=== PATIENT | male | born 1950 | race Caucasian/White ===

== ENCOUNTER 2021-03-18 12:34 | Inpatient (IN) | payer MEDICARE ==
[~2021-03-18] VITALS: Ht 193 cm; Wt 63.5 kg
[2021-03-18 17:39] LABS: HEMOGLOBIN 12.6 gm/dl (14.0-17.5); RED BLOOD COUNT 4.25 M/UL (4.20-5.50); WHITE BLOOD COUNT 6.3 K/UL (4.5-11.0)
[2021-03-18] MEDS ORDERED: PROAIR HFA8.5 GM INH (17:40)
[2021-03-18] MEDS ORDERED: GABAPENTIN800 MG PO (17:40)
[2021-03-18] MEDS ORDERED: ZOLOFT100 MG PO (17:40)
[2021-03-18] MEDS ORDERED: IBUPROFEN800 MG PO (17:42)
[2021-03-18] MEDS ORDERED: CYCLOBENZAPRINE10 MG PO (17:43)
[2021-03-18] MEDS ORDERED: LISINOPRIL10 MG PO (17:43)
[2021-03-18] MEDS ORDERED: OMEPRAZOLE20 M1 PO (17:45)
[2021-03-18] MEDS ORDERED: ACETAMINOPHEN500 MG PO (17:45)
[2021-03-18] MEDS ORDERED: FAMOTIDINE20 MG PO (17:45)
[2021-03-18 18:13] LABS: BUN/CREATININE RATIO 33 (0-10)
[2021-03-19 06:30] LABS: HEMOGLOBIN 12.3 gm/dl (14.0-17.5); RED BLOOD COUNT 4.13 M/UL (4.20-5.50)
[2021-03-19 07:03] LABS: BUN/CREATININE RATIO 29 (0-10)
[2021-03-20 05:40] LABS: HEMOGLOBIN 13.7 gm/dl (14.0-17.5); WHITE BLOOD COUNT 6.1 K/UL (4.5-11.0)
[2021-03-20 06:00] LABS: BUN/CREATININE RATIO 19 (0-10)
[2021-03-20 06:08] LABS: RED BLOOD COUNT 4.66 M/UL (4.20-5.50)
[2021-03-20] MEDS ORDERED: ASPIRIN81 MG PO (12:25)
[2021-03-20] MEDS ORDERED: CHRONULAC20 GM/30 M PO (12:25)
[2021-03-20] MEDS ORDERED: ATORVASTATIN CA20 MG PO (12:25)
[2021-03-20] MEDS ORDERED: IPRAT-ALBUT 0.5-3 ML NEB (12:25)
[2021-03-20] MEDS ORDERED: DOXYCYCLINE HY100 MG PO (14:34)
== END 2021-03-20 14:18 | disposition home or self-care (01) | DRG 273 ==
LOC: CCU 16:36
PROVIDERS: ADMIT Internal Medicine
PROC: 02583ZZ Destruction of Conduction Mechanism, Percutaneous Approach (ICD-10-PCS; principal; 2021-03-19)
PROC: 02K83ZZ Map Conduction Mechanism, Percutaneous Approach (ICD-10-PCS; 2021-03-19)
PROC: 4A023FZ Measurement of Cardiac Rhythm, Percutaneous Approach (ICD-10-PCS; 2021-03-19)
PROC: 4A0234Z Measurement of Cardiac Electrical Activity, Percutaneous Approach (ICD-10-PCS; 2021-03-19)
PROC: B24BZZ4 Ultrasonography of Heart with Aorta, Transesophageal (ICD-10-PCS; 2021-03-19)
DX: I48.92 Unspecified atrial flutter (principal); E43 Unspecified severe protein-calorie malnutrition; M48.56XA Collapsed vertebra, not elsewhere classified, lumbar region, initial encounter for fracture; Z68.1 Body mass index [BMI] 19.9 or less, adult; Z20.822 Contact with and (suspected) exposure to COVID-19; J44.9 Chronic obstructive pulmonary disease, unspecified; K59.00 Constipation, unspecified; I95.9 Hypotension, unspecified; F17.210 Nicotine dependence, cigarettes, uncomplicated; Z82.0 Family history of epilepsy and other diseases of the nervous system
CPT/HCPCS: 36415; 71250; 72100; 80053; 80061; 81001; 82550; 82553; 83036; 83735; 83880; 84439; 84443; 84484; 85025; 85730; 93005; 93609; 93620; 93621; 99152; 99153; C1733; C1766; J1644; J1650; J2250; J2270; J2405; J3010; J7040